=== PATIENT | female | born 1945 | race Caucasian/White ===

== ENCOUNTER 2017-04-17 06:13 | Outpatient (CLI) ==
--- NOTE | 2017-04-20 08:27 | ECHO2D ---
Date of Exam: 04/17/17 Ordering Physician: DONATO BOOTHE Room #: OP Reason for Echo: SOB ON EXERTION M-Mode Normal Adult Results LV Dimensions Normal Adult Results AoV Opening excursions >1.6 >1.6 LVEDD-base- 3.5-5.8 3.7 Ao root dimensions 2.0-3.7 3.1 LVESD-base- 3.1-4.6 L. Atrium dimensions 1.9-3.8 3.9 Post. Wall thickness 0.8-1.1 1.1 IV septum (thickness) 0.7-1.2 1.0 Post. Wall excursion 0.72-1.3 NORMAL Septal motion NORMAL Systolic motion R. Ventricular cavity 1.5-2.0 NORMAL LVEF 60% 70% Paradoxical septal wall motion NORMAL 2-D : 2-D M Mode Echocardiogram was performed using apical four chamber and left parasternal long and short axis views. Tricuspid and aortic valve appear to be normal. Contractility of the left ventricle seems to be normal, so is the cavity size. Left atrial cavity size and aortic root appear to be normal. There is no pericardial effusion. There is no thrombus noted in the left ventricular or left aortic cavity. Mitral Valve Prolapse noted apical four chamber view and left parasternal long axis view. M-MODE: MV: MITRAL VALVE PROLAPSE LATE SYSTOLIC AV: NORMAL TV: NORMAL PV: NORMAL CHAMBER SIZE: NORMAL WALL MOTION: NORMAL PERICARDIUM: NORMAL INTERPRETATION: 1. MITRAL VALVE PROLAPSE LATE SYSTOLIC 2. NORMAL LEFT VENTRICULAR CONTRACTILITY 3. NORMAL LEFT VENTRICLE AND LEFT ATRIAL SIZE MTDD
== END 2017-04-17 06:14 | disposition home or self-care (01) ==
LOC: CAR 06:13
PROVIDERS: ATTEND Family Medicine
DX: R06.02 Shortness of breath (principal)